=== PATIENT | male | born 1965 | race Caucasian/White ===

== ENCOUNTER 2016-06-24 13:49 | Emergency (ER) | payer SELFPAY ==
[~2016-06-24] VITALS: Ht 180.3 cm; Wt 108.4 kg
[~2016-06-24 13:49] MED LIST: ATRO0.05 LEFT EYE; GLUCTAB PO; PERC5TAB12 PO; POLY10O OU
[2016-06-24 13:57] VITALS: BP 147/96; PULSE 81; RESP 18; TEMP 98.3; O2SAT 98
[2016-06-24] MEDS ORDERED: HYDR-3366 PO (15:10)
--- NOTE | 2016-06-24 15:10 | PD ---
HPI Chief Complaint: Numbness/Tingling Time Seen by Provider: 14:53 Travel History International Travel<30 days: No Contact w/Intl Traveler<30days: No Traveled to known affect area: No History of Present Illness HPI Patient is a 51 year old male presents with atraumatic low back pain and numbness and tingling of the RUE. Patient states that he has a history of radiculopathy of the RUE. Patient denies trauma. States ran out of his pain medication. Patient denies saddle anesthesia, dyuria, enuresis. Denies fevers. PFSH Past Medical History Heart Rhythm Problems: No Cardiac Catheterization: No Cardiovascular Problems: No High Cholesterol: No Congestive Heart Failure: No Diabetes: Yes Diminished Hearing: No Hypertension: No Musculoskeletal: Yes (BACK PAIN) Immunizations Current: No Myocardial Infarction: No Past Surgical History Coronary Artery Bypass Graft: No Social History Alcohol Use: No Tobacco Use: Yes (4 CIG/DAY) Substance Use: No Allergies-Medications (Allergen,Severity, Reaction): Coded Allergies: Penicillin (Verified Allergy, Mild, ITCHING, 06/24/16) Reported Meds & Prescriptions Reported Meds & Active Scripts Active [place] (Hydrocodone-Acetaminophen) 10-325 Mg Tab 1 Tab PO Q6H PRN Reported Metformin (Metformin HCl) 500 Mg Tab 500 Mg PO DAILY With a meal Cymbalta DR (Duloxetine HCl) 20 Mg Capdr 20 Mg PO DAILY Review of Systems Except as stated in HPI: all other systems reviewed are Neg Physical Exam Narrative GENERAL: WD/WN in minimal discomfort. SKIN: Warm and dry. HEAD: Normocephalic. EYES: No scleral icterus. No injection or drainage. NECK: Supple, trachea midline. No JVD or lymphadenopathy. CARDIOVASCULAR: Regular rate and rhythm without murmurs, gallops, or rubs. RESPIRATORY: Breath sounds equal bilaterally. No accessory muscle use. GASTROINTESTINAL: Abdomen soft, non-tender, nondistended. NEURO: 5/5 strength in all muscle groups of the upper and lower extremities. MUSCULOSKELETAL: No cyanosis, or edema. No midline CTLS spine tenderness. No deformity nor bruising of extremities. Full active ROM of all joint in upper and lower ext. BACK: Nontender without obvious deformity. No CVA tenderness. Data Data Last Documented VS Vital Signs Date Time Temp Pulse Resp B/P Pulse Ox O2 Delivery O2 Flow Rate FiO2 06/24/16 13:57 98.3 81 18 147/96 98 Orders Oxycodone-Acetamin 5-325 Mg (Percocet (06/24/16 15:15) [facility] Medical Decision Making Medical Screen Exam Complete: Yes Emergency Medical Condition: Yes Differential Diagnosis Acute on chronic back pain, radiculopathy, Cauda equina ruled out clinically. Narrative Course Patient given pain medication in ED, he walked up to physician desk afterwards and stated that he felt much better and was grateful. 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 Discussed return to ED criteria. No indication for imaging as he has had OP imaging. Diagnosis Primary Impression: Acute exacerbation of chronic low back pain Additional Instructions: The emergency department should not be considered part of your treatment for chronic back pain. He should not expect to get pain medicine scripts from the emergency department. We are always happy to see and evaluate she for acute medical emergencies. The need to follow up with your regular physician. If you f fill the prescription for pain medicine today. Pain management physician may discharge you and you may have problems getting a new paintings restorer. Med/Other Pt SpecificInfo: Prescription(s) given Scripts Hydrocodone-Acetaminophen ([place])10-325 Mg Tab1 Tab PO Q6H PRN (PAIN) #10 TAB Ref 0 Prov:Regino Leone MD 06/24/16 Disposition: 01 DISCHARGE HOME Condition: Stable Regino Leone MD Jun 24, 2016 15:10
[2016-06-24] MEDS ORDERED: oxyCODONE/ACETAMINOPHEN 5 MG/325 MG TAB PO ONE (15:15)
[2016-06-24] MEDS ORDERED: METF500T PO (15:17)
[2016-06-24] MEDS ORDERED: DULO20 PO (15:17)
== END 2016-06-24 16:12 | disposition home or self-care (01) ==
LOC: PHED 13:49
DX: M54.5 Low back pain (principal); G89.29 Other chronic pain; R20.0 Anesthesia of skin; R20.2 Paresthesia of skin; E11.9 Type 2 diabetes mellitus without complications; Z72.0 Tobacco use
CPT/HCPCS: 99283

== ENCOUNTER 2016-09-23 10:58 | Emergency (ER) | payer SELFPAY ==
[~2016-09-23] VITALS: Ht 177.8 cm; Wt 110.2 kg
[~2016-09-23 10:58] MED LIST changes: -ATRO0.05 LEFT EYE; +DULO20 PO; -GLUCTAB PO; +HYDR-3366 PO; +METF500T PO; -PERC5TAB12 PO; -POLY10O OU
[2016-09-23 11:04] VITALS: BP 135/90; PULSE 83; RESP 16; TEMP 98.1; O2SAT 96
[2016-09-23] MEDS ORDERED: SULFAMETHOXAZOLE-TRIMETHOPRIM 400-80 MG TAB PO ONE (11:45)
[2016-09-23] MEDS ORDERED: CEPHALEXIN MONOHYDRATE 500 MG CAP PO ONE (11:45)
[2016-09-23] MEDS ORDERED: oxyCODONE/ACETAMINOPHEN 5 MG/325 MG TAB PO ONE (11:45)
[2016-09-23] MEDS ORDERED: CEPH-460 PO (11:46)
[2016-09-23] MEDS ORDERED: BACT800T5 PO (11:46)
--- NOTE | 2016-09-23 11:46 | PD ---
HPI Chief Complaint: Skin Problem Time Seen by Provider: 11:45 Travel History International Travel<30 days: No Contact w/Intl Traveler<30days: No Traveled to known affect area: No History of Present Illness HPI 51-year-old male with a history of chronic low back pain presents to the emergency department for evaluation of right arm redness and pain and lower back pain. The patient states that he has a few insect bites on his right upper arm that he noticed 2 days ago. States that they have been pruritic and he has scratched them. States that this morning he noticed he had a large area of redness and pain to his right upper arm. States it is warm to touch. States it is causing achiness in his entire right arm. He denies any fever, chills, nausea, vomiting, numbness or tingling, weakness. States that he is also having low back pain. He has a history of chronic low back pain and currently follows up with pain management. No new injury or trauma to his lower back. No saddle anesthesia, bowel or bladder incontinence. States that he is prescribed Lortab 85884 milligram tablets but he has run out of his prescription. He is requesting something for pain. No other complaints. PFSH Past Medical History Heart Rhythm Problems: No Cardiac Catheterization: No Cardiovascular Problems: No High Cholesterol: No Congestive Heart Failure: No Diabetes: Yes Patient Takes Glucophage: No Diminished Hearing: No Hypertension: No Musculoskeletal: Yes (Chronic back pain ) Neurologic: Yes (NEUROPATHY) Immunizations Current: No Myocardial Infarction: No Past Surgical History Coronary Artery Bypass Graft: No Social History Alcohol Use: No Tobacco Use: Yes (2 cigarettes/day) Substance Use: No Allergies-Medications (Allergen,Severity, Reaction): Coded Allergies: Penicillin (Verified Allergy, Mild, ITCHING, 06/24/16) Reported Meds & Prescriptions Reported Meds & Active Scripts Active Bactrim DS (Sulfamethoxazole-Trimethoprim) 800-160 Mg Tab 1 Tab PO BID 10 Days Keflex (Cephalexin) 500 Mg Cap 500 Mg PO Q6H [address] (Duloxetine HCl) 20 Mg Capdr 20 Mg PO DAILY Review of Systems Except as stated in HPI: all other systems reviewed are Neg Physical Exam Narrative GENERAL: Well-nourished and well-developed pleasant patient in no acute distress who is nontoxic appearing. SKIN: Warm and dry. 5 scattered papules to right upper arm,. Insect bites. There is a large area of erythema and warmth approximately 11 x 11 cm on the right upper arm. No fluctuance, discharge or drainage. HEAD: Normocephalic and atraumatic. EYES: No injection, drainage, or hyphema noted. PERRLA. EOMI. ENT: No nasal drainage noted. Oropharynx is clear. NECK: Supple and the trachea is midline. CARDIOVASCULAR: Regular rate and rhythm. RESPIRATORY: Breath sounds are equal bilaterally with no accessory muscle use, wheezing, rhonchi, or crackles. GASTROINTESTINAL: Abdomen is soft, non-tender, and nondistended. MUSCULOSKELETAL: No obvious deformities, swelling, cyanosis, or ecchymosis is present throughout the upper and lower extremities. Patient has full range of motion without any signs of neurovascular compromise. BACK: Nontender without any obvious deformities, bony point tenderness, or crepitus noted throughout the thoracic and lumbar vertebrae. NEUROLOGICAL: Awake, alert, and oriented. Normal speech and gait. Cranial nerves are grossly intact. Data Data Last Documented VS Vital Signs Date Time Temp Pulse Resp B/P Pulse Ox O2 Delivery O2 Flow Rate FiO2 09/23/16 11:04 98.1 83 16 135/90 96 Orders Sulfameth-Trimeth 400-80 Mg (Bactrim 400 (09/23/16 11:45) Cephalexin (Keflex) (09/23/16 11:45) Oxycodone-Acetamin 5-325 Mg (Percocet (09/23/16 11:45) MDM Medical Decision Making Medical Screen Exam Complete: Yes Emergency Medical Condition: Yes Differential Diagnosis Cellulitis versus insect bites versus allergic reaction versus acute on chronic low back pain Narrative Course 51-year-old male presents to the emergency department for evaluation of right arm redness and lower back pain. Patient is afebrile, vital signs are stable. He does appear to have a cellulitis to his right upper extremity. He'll be started on Bactrim and Keflex. He is also complaining of lower back pain but has a history of chronic low back pain, no new injury or trauma, no focal neurologic deficits. No red flag signs or symptoms. I did look the patient up on [place] prescription drug monitoring program which shows he filled a 30 day prescription of Lortab 58801 milligrams 09/01/16. Meaning that he should have 9 days left of this prescription. I did address this with the patient and he admits he has been taking more tablets than he is prescribed which is why he is out of his prescription. I will give the patient a one-time dose of Percocet here in the ED. I discussed with him that we do not routinely refill chronic pain medication from the emergency department. He needs to follow-up with his pain management physician as an outpatient. Patient verbalizes understanding and agreement with treatment plan. Diagnosis Primary Impression: Right arm cellulitis Additional Impression: Chronic low back pain Qualified Code: M54.5 - Chronic low back pain, unspecified back pain laterality, with sciatica presence unspecified Referrals: Pain Management Primary Care Physician Patient Instructions: Cellulitis (ED), Chronic Back Pain (ED), General Instructions Additional Instructions: Take medications as prescribed with food and a full glass of water. Follow-up with your Primary Care Physician. Return to the ED for any acute worsening of symptoms. Med/Other Pt SpecificInfo: Prescription(s) given Scripts Sulfamethoxazole-Trimethoprim (Bactrim DS)800-160 Mg Tab1 Tab PO BID 10 Days Ref 0 Prov:Manuel Gavin MD 09/23/16 Cephalexin (Keflex)500 Mg [id number] Mg PO Q6H 10 Days Ref 0 Prov:Manuel Gavin MD 09/23/16 Disposition: 01 DISCHARGE HOME Condition: Stable Sheila Hawley Sep 23, 2016 11:46
== END 2016-09-23 12:40 | disposition home or self-care (01) ==
LOC: PHEFT 10:58
DX: L03.113 Cellulitis of right upper limb (principal); M54.5 Low back pain; G89.29 Other chronic pain; E11.9 Type 2 diabetes mellitus without complications; G62.9 Polyneuropathy, unspecified; F17.210 Nicotine dependence, cigarettes, uncomplicated
CPT/HCPCS: 99283

== ENCOUNTER 2016-10-11 07:58 | Observation (INO) | payer SELFPAY ==
[2016-10-11] VITALS (10 sets, daily range): BP systolic 120–155; BP diastolic 65–95; PULSE 62–84; RESP 16–24; TEMP 97.8–98.6; O2SAT 93–96
[~2016-10-11] VITALS: Ht 180.3 cm; Wt 110.0 kg
[~2016-10-11 07:58] MED LIST changes: +BACT800T5 PO; +CEPH-460 PO; -HYDR-3366 PO; -METF500T PO
--- NOTE | 2016-10-11 08:29 | PD ---
HPI Chief Complaint: Chest Pain Time Seen by Provider: 08:03 Travel History International Travel<30 days: No Contact w/Intl Traveler<30days: No Traveled to known affect area: No History of Present Illness HPI 51yo M with PMH of DM not on any medication, neuropathy, TIA presents to the ED with c/o left chest pressure since 4am. Pressure is constant, nonradiating and associated with nausea and tingling in left arm. Denies any fever, cough, sob, vomiting, abdominal pain, focal weakness or numbness other than left arm. Pt had similar chest pain before and had negative stress test 5-6 years ago. +Cig smoker. PFSH Past Medical History Heart Rhythm Problems: No Cardiac Catheterization: No Cardiovascular Problems: No High Cholesterol: No Congestive Heart Failure: No Cerebrovascular Accident: Yes Diabetes: Yes Patient Takes Glucophage: Yes Diminished Hearing: No Hypertension: No Musculoskeletal: Yes (Chronic back pain ) Neurologic: Yes (NEUROPATHY) Immunizations Current: No Myocardial Infarction: No Influenza Vaccination: No Past Surgical History Surgical History: No Previous Surgery Coronary Artery Bypass Graft: No Social History Alcohol Use: No Tobacco Use: Yes (1/2 PPD) Substance Use: No Allergies-Medications (Allergen,Severity, Reaction): Coded Allergies: Penicillin (Verified Allergy, Mild, ITCHING, 10/11/16) Reported Meds & Prescriptions Reported Meds & Active Scripts Active Reported Lortab (Hydrocodone-Acetaminophen) 10-325 Mg Tab 1 Tab PO Q8HR PRN Duloxetine DR (Duloxetine HCl) 60 Mg Capdr 60 Mg PO DAILY Review of Systems Except as stated in HPI: all other systems reviewed are Neg Physical Exam Narrative GEN: 51yo M in mild distress. SKIN: Warm and dry. HEAD: Normocephalic, atraumatic. NECK: Trachea midline. No JVD. CV: S1, S2. No murmur. Lungs: CTA B/L, equal breath sounds. Abd: soft, NT/ND. No rebound tenderness or guarding. EXT: No lower ext edema. Data Data Last Documented VS Vital Signs Date Time Temp Pulse Resp B/P Pulse Ox O2 Delivery O2 Flow Rate FiO2 10/11/16 08:52 84 24 127/78 95 Room Air 10/11/16 08:06 98.3 Orders Electrocardiogram (10/11/16 ) Basic Metabolic Panel (Bmp) (10/11/16 08:25) Ckmb (Isoenzyme) Profile (10/11/16 08:25) Complete Blood Count With Diff (10/11/16 08:25) Magnesium (Mg) (10/11/16 08:25) Prothrombin Time / Inr (Pt) (10/11/16 08:25) Act Partial Throm Time (Ptt) (10/11/16 08:25) Troponin I (10/11/16 08:25) Chest, Single Ap (10/11/16 08:25) Ecg Monitoring (10/11/16 08:25) Bilateral Bp Monitoring (10/11/16 08:25) Iv Access Insert/Monitor (10/11/16 08:25) Oximetry (10/11/16 08:25) Oxygen Administration (10/11/16 08:25) Aspirin (Aspirin) (10/11/16 08:30) Sodium Chloride 0.9% Flush (Ns Flush) (10/11/16 08:30) Nitroglycerin Sl (Nitrostat Sl) (10/11/16 08:30) CKMB (10/11/16 08:48) CKMB% (10/11/16 08:48) Admit Order (Ed Use Only) (10/11/16 10:00) Labs Laboratory Tests Test 10/11/16 08:48 White Blood Count 11.6 TH/MM3 Red Blood Count 5.03 MIL/MM3 Hemoglobin 14.4 GM/DL Hematocrit 43.6 % Mean Corpuscular Volume 86.7 FL Mean Corpuscular Hemoglobin 28.6 PG Mean Corpuscular Hemoglobin 33.0 % Concent Red Cell Distribution Width 13.3 % Platelet Count 248 TH/MM3 Mean Platelet Volume 8.5 FL Neutrophils (%) (Auto) 60.2 % Lymphocytes (%) (Auto) 24.7 % Monocytes (%) (Auto) 11.2 % Eosinophils (%) (Auto) 3.0 % Basophils (%) (Auto) 0.9 % Neutrophils # (Auto) 7.0 TH/MM3 Lymphocytes # (Auto) 2.9 TH/MM3 Monocytes # (Auto) 1.3 TH/MM3 Eosinophils # (Auto) 0.3 TH/MM3 Basophils # (Auto) 0.1 TH/MM3 CBC Comment DIFF FINAL Differential Comment Prothrombin Time 10.4 SEC Prothromb Time International 0.9 RATIO Ratio Activated Partial 24.5 SEC Thromboplast Time Sodium Level 137 MEQ/L Potassium Level 4.5 MEQ/L Chloride Level 103 MEQ/L Carbon Dioxide Level 28.2 MEQ/L Anion Gap 6 MEQ/L Blood Urea Nitrogen 11 MG/DL Creatinine 0.92 MG/DL Estimat Glomerular Filtration 86 ML/MIN Rate Random Glucose 212 MG/DL Calcium Level 8.7 MG/DL Magnesium Level 1.9 MG/DL Total Creatine Kinase 146 U/L Creatine Kinase MB 1.0 NG/ML Troponin I LESS THAN 0.02 NG/ML MDM Medical Decision Making Medical Screen Exam Complete: Yes Emergency Medical Condition: Yes Interpretation(s) EKG: NSR 76bpm. Normal axis. No ST segment elevation or depression. Q wave III. Laboratory Tests Test 10/11/16 08:48 White Blood Count 11.6 TH/MM3 (4.0-11.0) Red Blood Count 5.03 MIL/MM3 (4.50-5.90) Hemoglobin 14.4 GM/DL (13.0-17.0) Hematocrit 43.6 % (39.0-51.0) Mean Corpuscular Volume 86.7 FL (80.0-100.0) Mean Corpuscular Hemoglobin 28.6 PG (27.0-34.0) Mean Corpuscular Hemoglobin 33.0 % Concent (32.0-36.0) Red Cell Distribution Width 13.3 % (11.6-17.2) Platelet Count 248 TH/MM3 (150-450) Mean Platelet Volume 8.5 FL (7.0-11.0) Neutrophils (%) (Auto) 60.2 % (16.0-70.0) Lymphocytes (%) (Auto) 24.7 % (9.0-44.0) Monocytes (%) (Auto) 11.2 % (0.0-8.0) Eosinophils (%) (Auto) 3.0 % (0.0-4.0) Basophils (%) (Auto) 0.9 % (0.0-2.0) Neutrophils # (Auto) 7.0 TH/MM3 (1.8-7.7) Lymphocytes # (Auto) 2.9 TH/MM3 (1.0-4.8) Monocytes # (Auto) 1.3 TH/MM3 (0-0.9) Eosinophils # (Auto) 0.3 TH/MM3 (0-0.4) Basophils # (Auto) 0.1 TH/MM3 (0-0.2) CBC Comment DIFF FINAL Differential Comment Prothrombin Time 10.4 SEC (9.8-11.6) Prothromb Time International 0.9 RATIO Ratio Activated Partial 24.5 SEC Thromboplast Time (24.3-30.1) Sodium Level 137 MEQ/L (136-145) Potassium Level 4.5 MEQ/L (3.5-5.1) Chloride Level 103 MEQ/L (98-107) Carbon Dioxide Level 28.2 MEQ/L (21.0-32.0) Anion Gap 6 MEQ/L (5-15) Blood Urea Nitrogen 11 MG/DL (7-18) Creatinine 0.92 MG/DL (0.60-1.30) Estimat Glomerular Filtration 86 ML/MIN (>89) Rate Random Glucose 212 MG/DL (74-106) Calcium Level 8.7 MG/DL (8.5-10.1) Magnesium Level 1.9 MG/DL (1.5-2.5) Total Creatine Kinase 146 U/L (39-308) Creatine Kinase MB 1.0 NG/ML (0.5-3.6) Troponin I LESS THAN 0.02 NG/ML (0.02-0.05) Last Impressions Chest X-Ray 10/11/16 0825 Signed Impressions: Service Date/Time: Tuesday, October 11, 2016 08:22 - CONCLUSION: Minimal left basilar atelectasis. Bob Arrington MD Differential Diagnosis ACS vs. musculoskeletal pain vs. GERD Narrative Course 51yo M with DM here with pressure like pain in chest. Pt given aspirin 325mg PO and sublingual nitro and states that chest pain was relieved a few minutes after the nitro. Labs reviewed, mild leukocytosis at 11.6. Troponin negative. Glucose elevated at 212 with normal CO2 and normal anion gap. Pt states he has DM but does not need any medication. Instructed pt to follow up with his PMD regarding his DM. CXR showed minimal left basilar atelectasis. Pt currently chest pain free. Given that pt's chest pain is concerning and pt has not had any cardiac work up in 5-6 years, will admit pt to chest pain center for serial EKG and cardiac enzyme and likely stress test. Diagnosis Primary Impression: Chest pain Qualified Code: R07.9 - Chest pain, unspecified type Admitting Information Admitting Physician Requests: Carrol Pruitt DO October 11, 2016 08:29
[2016-10-11] MEDS ORDERED: ASPIRIN 325 MG TAB PO ONE (08:30)
[2016-10-11] MEDS ORDERED: SODIUM CHLORIDE 0.9% FLUSH 10 ML FLUSH IVF PRN (08:30)
[2016-10-11] MEDS: NITROGLYCERIN 0.4 MG SL 25 TABS/BTL SL SCH ×3 (08:35→08:51)
--- NOTE | 2016-10-11 08:38 | RADRPT ---
EXAM DATE/TIME: 10/11/2016 08:22 [facility] COMPARISON: CHEST SINGLE AP, August 17, 2014, 18:04. INDICATIONS : Pressure in chest since 4am this morning, no shortness of breath, smoker MEDICAL HISTORY : None. SURGICAL HISTORY : None. ENCOUNTER: Initial ACUITY: 1 day PAIN SCORE: 8/10 LOCATION: Bilateral chest FINDINGS: A single view of the chest demonstrates minimal left basilar atelectasis. Right lung clear. Heart nor mal in size. Osseous structures are intact. CONCLUSION: Minimal left basilar atelectasis. Bob Arrington MD on October 11, 2016 at 8:36 Board Certified Radiologist. This report was verified electronically.
[2016-10-11 09:00] LABS: BASOPHIL # 0.1 TH/MM3 (0-0.2); BASOPHIL % 0.9 % (0.0-2.0); EOSINOPHIL # 0.3 TH/MM3 (0-0.4); HEMATOCRIT 43.6 % (39.0-51.0); HEMO FLAGS DIFF FINAL; LYMPH % 24.7 % (9.0-44.0); LYMPHOCYTE # 2.9 TH/MM3 (1.0-4.8); MEAN CELL VOLUME 86.7 FL (80.0-100.0); MEAN CORPUSCULAR HEMOGLOBIN 28.6 PG (27.0-34.0); MONO % 11.2 % (0.0-8.0); NEUT % 60.2 % (16.0-70.0); PLATELET COUNT 248 TH/MM3 (150-450); RED BLOOD COUNT 5.03 MIL/MM3 (4.50-5.90); RED CELL DISTRIBUTION WIDTH 13.3 % (11.6-17.2); WHITE BLOOD COUNT 11.6 TH/MM3 (4.0-11.0)
[2016-10-11 09:12] LABS: ANION GAP 6 MEQ/L (5-15); APTT (PATIENT) 24.5 SEC (24.3-30.1); BICARBONATE 28.2 MEQ/L (21.0-32.0); BLOOD UREA NITROGEN 11 MG/DL (7-18); CHLORIDE 103 MEQ/L (98-107); GLOMERULAR FILTRATION RATE 86 ML/MIN (>89); INTERNATIONAL NORMALIZED RATIO 0.9 RATIO; MAGNESIUM 1.9 MG/DL (1.5-2.5); PROTHROMBIN TIME - PATIENT 10.4 SEC (9.8-11.6); SODIUM (NA) 137 MEQ/L (136-145)
[2016-10-11 09:13] LABS: POTASSIUM 4.5 MEQ/L (3.5-5.1)
[2016-10-11 09:21] LABS: CREATINE KINASE 146 U/L (39-308)
[2016-10-11] MEDS ORDERED: SODIUM CHLORIDE 0.9% FLUSH 5 ML FLUSH IVF PRN (10:30)
[2016-10-11] MEDS ORDERED: ALPRAZolam 0.25 MG TAB PO PRN (10:30)
[2016-10-11] MEDS ORDERED: ACETAMINOPHEN/HYDROcodone 325 MG/7.5 MG TAB PO PRN (10:30)
[2016-10-11] MEDS ORDERED: HYDR-3535 PO (10:37)
[2016-10-11] MEDS ORDERED: DULO1CAP3 PO (10:37)
--- NOTE | 2016-10-11 10:37 | HHI.HP ---
HPI Primary Care Physician Non-Staff Chief Complaint Chest pain History of Present Illness This is a 51-year-old male that presents to ED via private vehicle with history of diabetes, chronic back pain, neuropathy, TIA, and tobacco abuse with a complaint of a chest pressure. He states he had a chest pressure began around midnight last night. 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 It was a 7-8 out of 10. He also noted some numbness and tingling in his left hand. Found the discomfort was worsened if he let his left arm brushed against the left side of his chest wall. He states he has had chronic left-sided chest soreness for about 2 years and has talked his doctor about this several times. Little nauseous initially with the higher level intensity pain. No shortness breath or diaphoresis. He states he took a morphine tablet that he had and it brought the discomfort to about a 4 out of 10. He states he is given subluminal nitroglycerin in the ED which brought the discomfort to about a 2 out of 10. It is still there as a 2 out of 10. Denies ever having a heart catheterization. He had a Sher protocol ETT in 2007 is nonischemic. States he would not be a walk on a treadmill again with his chronic back discomfort and neuropathy in his feet. Review of Systems General: Patient denies fevers, chills recent, and recent travel HEENT: Patient denies headache, sore throat, difficulty swallowing. Cardiovascular: Has the chest discomfort as mentioned above. Denies sensation of heart beating rapidly or irregularly. No syncope. Denies diaphoresis. Respiratory: Denies shortness of breath or inspirational chest discomfort. Denies coughing wheezing or hemoptysis. GI: He was nauseous at the higher level pain. Patient denies vomiting, diarrhea , abdominal pain, bloody stools. Musculoskeletal: Chronic back pain. Patient denies joint pain or edema. Denies calf pain or edema. Neurovascular: Chronic neuropathy in his feet. Patient denies numbness, tingling, weakness in extremities. Denies headache. Endocrine: Denies polyuria and polydipsia. Hematologic: Denies easy bruising. Skin: Denies rash or itching. Past Family Social History Allergies: Coded Allergies: Penicillin (Verified Allergy, Mild, ITCHING, 10/11/16) Past Medical History Diabetes however he states he stopped taking metformin a couple months ago and was controlling with diet. His glucose was to 12 in the ED and he states that that is unusual for him. History of chronic back pain with neuropathy. States had a TIA 5 or 6 years ago. History of tobacco abuse. Denies hypertension and hyperlipidemia. When asked if he was ever on statin medications as he is diagnosed with diabetes and he states no. Past Surgical History Denies. Reported Medications Reported Meds & Active Scripts Active Reported Cymbalta DR (Duloxetine HCl) 20 Mg Capdr 20 Mg PO DAILY Active Ordered Medications Current Medications Medications (Trade) Dose Ordered Sig/Gayle Route Start Time Stop Time Status Last Admin (NS Flush) 2 ml UNSCH PRN IVF 10/11/16 08:30 (NS Flush) 2 ml UNSCH PRN IVF 10/11/16 10:30 UNV (NS Flush) 2 ml BID IVF 10/11/16 21:00 UNV (Tylenol) 500 mg Q4H PRN PO 10/11/16 10:30 UNV ([place] 7.5-325 Mg) 1 tab Q4H PRN PO 10/11/16 10:30 UNV (Zofran Inj) 4 mg Q6H PRN IV 10/11/16 10:30 UNV Family History States his father passed at the age of 66 of a myocardial infarction. Social History Patient smokes one pack of cigarettes daily for 30 years. Denies alcohol or illicit drugs. 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 Physical Exam Vital Signs Vital Signs Date Time Temp Pulse Resp B/P Pulse Ox O2 Delivery O2 Flow Rate FiO2 10/11/16 10:05 69 16 120/75 95 Room Air 10/11/16 08:52 84 24 127/78 95 Room Air 10/11/16 08:08 78 16 155/95 95 Room Air 10/11/16 08:06 98.3 76 16 155/95 Physical Exam GENERAL: This is a well-nourished, well-developed patient, in no apparent distress. Patient speaks in clear complete sentences. Patient is pleasant. HEENT: Head is atraumatic and normocephalic. Neck is supple without lymphadenopathy and trachea is midline. No JVD or carotid bruits. CARDIOVASCULAR: Regular rate and rhythm without murmurs, gallops, or rubs. RESPIRATORY: Clear to auscultation. Breath sounds equal bilaterally. No wheezes , rales, or rhonchi. Chest wall is tender and reproduces discomfort he has been having. Also is worsened with movement of the torso. No use of accessory muscles. GASTROINTESTINAL: Abdomen is nontender, nondistended. Abdomen soft. No obvious pulsatile mass or bruit. No CVA tenderness. Strong femoral pulses bilaterally. Normal bowel sounds in all quadrants. MUSCULOSKELETAL: Patient is moving upper and lower extremities freely. No calf tenderness or edema, no Homans sign. Strong pulses in upper and lower extremities. Low back pain is present with flexion and extension and is chronic. No spinous process point tenderness on palpating cervical, thoracic, or lumbar spine. NEUROLOGICAL: Patient is alert and oriented. Cranial nerves 2-12 are grossly intact. No focal deficits and speech is clear. SKIN: No rash and turgor is normal. Laboratory Laboratory Tests Test 10/11/16 08:48 White Blood Count 11.6 Red Blood Count 5.03 Hemoglobin 14.4 Hematocrit 43.6 Mean Corpuscular Volume 86.7 Mean Corpuscular Hemoglobin 28.6 Mean Corpuscular Hemoglobin 33.0 Concent Red Cell Distribution Width 13.3 Platelet Count 248 Mean Platelet Volume 8.5 Neutrophils (%) (Auto) 60.2 Lymphocytes (%) (Auto) 24.7 Monocytes (%) (Auto) 11.2 Eosinophils (%) (Auto) 3.0 Basophils (%) (Auto) 0.9 Neutrophils # (Auto) 7.0 Lymphocytes # (Auto) 2.9 Monocytes # (Auto) 1.3 Eosinophils # (Auto) 0.3 Basophils # (Auto) 0.1 CBC Comment DIFF FINAL Differential Comment Prothrombin Time 10.4 Prothromb Time International 0.9 Ratio Activated Partial 24.5 Thromboplast Time Sodium Level 137 Potassium Level 4.5 Chloride Level 103 Carbon Dioxide Level 28.2 Anion Gap 6 Blood Urea Nitrogen 11 Creatinine 0.92 Estimat Glomerular Filtration 86 Rate Random Glucose 212 Calcium Level 8.7 Magnesium Level 1.9 Total Creatine Kinase 146 Creatine Kinase MB 1.0 Troponin I LESS THAN 0.02 Result Diagram: 10/11/1648 10/11/16847 Imaging Last 24 hours Impressions Chest X-Ray 10/11/16 0868 Signed Impressions: Service Date/Time: Tuesday, October 11, 2016 08:22 - CONCLUSION: Minimal left basilar atelectasis. Bob Arrington MD Course Initial EKG is sinus rhythm without significant ST segment depressions or elevations. Assessment and Plan Assessment and Plan * Chest pain: Patient's discomfort is atypical. He will have serial cardiac enzymes and EKGs for ruling out purposes and will be evaluated by Dr. Chevy Garcia to decide further plan of care. He'll be given Toradol 1 for the discomfort and will be reassessed. * Diabetes: Patient will be on sliding scale insulin coverage. He is follow diabetic diet at discharge. Needs discuss with his primary care physician medications for his diabetes as well as if he can be on a statin medication being that he is diabetic. * Chronic back pain: Continue his medications. * Tobacco abuse: Patient has been counseled on importance of smoking cessation. Primitivo Valencia October 11, 2016 10:37
--- NOTE | 2016-10-11 10:38 | HHI.DCPOC ---
Discharge Care Plan Goals to Promote Your Health NEED TO DISCUSS TAKING CHOLESTEROL MEDICATIONS FOR PREVENTATIVE CARE SINCE YOU ARE DIABETIC. * To prevent worsening of your condition and complications * To maintain your health at the optimal level Directions to Meet Your Goals Take your medications as prescribed Follow your dietary instruction Follow activity as directed Keep your appointments as scheduled Take your immunizations and boosters as scheduled If your symptoms worsen call your PCP, if no PCP go to Urgent Care Center or Emergency Room Smoking is Dangerous to Your Health. Avoid second hand smoke Call the 24-hour hour crisis hotline for domestic abuse at Primitivo Valencia October 11, 2016 10:38
[2016-10-11] MEDS ORDERED: DEXTROSE 50% IN WATER 50 ML VIAL(D50) IV PRN (10:45)
[2016-10-11] MEDS ORDERED: KETOROLAC TROMETHAMINE 30 MG/ML (IVP) VIAL IVP ONE (10:45)
[2016-10-11] MEDS ORDERED: GLUCAGON 1 MG/ML VIAL IM/SQ PRN (10:45)
[2016-10-11] MEDS: INSULIN ASPART SUPPLEMENTAL SCALE SQ SCH ×3 (11:00→21:11)
[2016-10-11] MEDS: PANTOPRAZOLE SOD 40 MG DELAYED RELEASE TAB PO SCH (11:09)
--- NOTE | 2016-10-11 14:51 | RADRPT ---
EXAM DATE/TIME: 10/11/2016 12:18 [facility] COMPARISON: No previous studies available for comparison. INDICATIONS : Mid chest pain for one day. Angina DOSE: 35.0 mCi Tc99m Myoview at stress 8.7 mCi Tc99m Myoview at rest REST HEART RATE: 78 BPM TARGET HEART RATE: 142 BPM MAX HEART RATE: 144 BPM REST BLOOD PRESSURE: 134/86 mmHg MAX BLOOD PRESSURE: 170/84 mmHg EJECTION FRACTION: 50% MEDICAL HISTORY : Hypertension. Stroke Diabetes mellitus type 2. SURGICAL HISTORY : None. ENCOUNTER: Initial ACUITY: 1 day PAIN SCALE: 8/10 LOCATION: Midsternal chest TECHNIQUE: The patient underwent upright treadmill exercise in the chest pain center. Continuous ECG tracing wa s monitored during stress. Gated SPECT imaging was performed after stress, and conventional SPECT im aging was performed at rest. The examination was performed on a SPECT/CT scanner, both attenuation-c orrected and non-corrected datasets were reviewed. FINDINGS: The best perfused myocardium is the septum and the inferior wall. There is minimal redistribution in the anterior wall beginning at mid ventricular wall extending towards the apex. Wall motion is reas onably well preserved in the apex. Ejection fraction is 50%. CONCLUSION: Findings suspicious for minimal stress-induced ischemia beginning in the mid ventricular wall extendi ng towards the apex. RISK CATEGORY: Low (<1% Annual Mortality Rate) Fadi Rodriguez MD FACR on October 11, 2016 at 14:47 Board Certified Radiologist. This report was verified electronically.
[2016-10-11] MEDS ORDERED: cloNIDine HCL 0.1 MG TAB PO PRN (15:30)
[2016-10-11] MEDS ORDERED: SODIUM CHLOR 0.9% 1000 ML INJ 1,000 ML IV SCH (15:30)
[2016-10-11] MEDS: ACETAMINOPHEN/HYDROcodone 325 MG/10 MG TAB PO PRN (15:59)
[2016-10-11] MEDS: METOPROLOL TARTRATE 25 MG TAB PO SCH ×2 (17:02→21:05)
[2016-10-11] MEDS: NITROGLYCERIN 2% OINT 1 GM PACKET TOPICAL SCH ×2 (17:03→23:00)
--- NOTE | 2016-10-11 17:09 | HHI.PR ---
Subjective Remarks Follow-up for chest pain Patient stated that he does feel a mild tingling sensation on the left side of his chest. Nausea or vomiting. He stated that he thought the nitroglycerin sublingual helped him. Otherwise he had no other concerns. Patient is asking to eat. Care is transferred to the hospitalist service from chest pain center due to abnormal nuclear stress test. Objective Vitals Vital Signs Date Time Temp Pulse Resp B/P Pulse Ox O2 Delivery O2 Flow Rate FiO2 10/11/16 16:10 98.4 69 20 141/93 96 10/11/16 14:22 21 10/11/16 12:27 97.8 67 20 141/92 96 10/11/16 10:05 69 16 120/75 95 Room Air 10/11/16 08:52 84 24 127/78 95 Room Air 10/11/16 08:08 78 16 155/95 95 Room Air 10/11/16 08:06 98.3 76 16 155/95 Result Diagram: 10/11/1648 10/11/1648 Objective Remarks GENERAL: in NAD SKIN: Warm and dry. HEAD: Normocephalic. EYES: No scleral icterus. No injection or drainage. NECK: Supple, trachea midline. No JVD or lymphadenopathy. CARDIOVASCULAR: Regular rate and rhythm without murmurs, gallops, or rubs. RESPIRATORY: Breath sounds equal bilaterally. No accessory muscle use. GASTROINTESTINAL: Abdomen soft, non-tender, nondistended. MUSCULOSKELETAL: No cyanosis, or edema. BACK: Nontender without obvious deformity. No CVA tenderness. Medications and IVs Current Medications Aspirin (Aspirin) 325 mg ONCE ONCE PO Last administered on 10/11/16 08:51; Start 10/11/16 at 08:30; Stop 10/11/16 at 08:31; Status DC Sodium Chloride (NS Flush) 2 ml UNSCH PRN IVF FLUSH AFTER USING IV ACCESS; Start 10/11/16 at 08:30; Stop 10/11/16 at 10:30; Status DC Nitroglycerin (Nitrostat Sl) 0.4 mg Q5M SL Last administered on 10/11/16 08:51 ; Start 10/11/16 at 08:30; Stop 10/11/16 at 08:41; Status DC IV Flush (NS Flush) 2 ml UNSCH PRN IVF FLUSH AFTER USING IV ACCESS; Start at 10:30 IV Flush (NS Flush) 2 ml BID IVF ; Start 10/11/16 at 21:00 Acetaminophen (Tylenol) 500 mg Q4H PRN PO HEADACHE; Start 10/11/16 at 10:30 Acetaminophen/ Hydrocodone Bitart ([place] 7.5-325 Mg) 1 tab Q4H PRN PO PAIN SCALE 1 TO 7; Start 10/11/16 at 10:30; Stop 10/11/16 at 15:41; Status DC Ondansetron HCl (Zofran Inj) 4 mg Q6H PRN IV NAUSEA; Start 10/11/16 at 10:30 Pantoprazole Sodium (Protonix) 40 mg DAILY PO Last administered on 10/11/16 11: 09; Start 10/11/16 at 11:00 Aspirin (Aspirin) 325 mg DAILY PO ; Start 10/12/16 at 09:00 Alprazolam (Xanax) 0.25 mg Q8H PRN PO ANXIETY; Start 10/11/16 at 10:30 Insulin Aspart (NovoLOG SUPPLEMENTAL SCALE) 1 ACHS SLIDING SCALE SQ ; Start 10/11/16 at 11:00 Dextrose (D50w (Vial) Inj) 25 ml UNSCH PRN IV HYPOGLYCEMIA-SEE COMMENTS; Start 10/11/16 at 10:45 Glucagon (Glucagon Inj) 1 mg UNSCH PRN IM/SQ HYPOGLYCEMIA-SEE COMMENTS; Start 10/11/16 at 10:45 Ketorolac Tromethamine (Toradol Inj) 30 mg ONCE ONCE IVP Last administered on 10/11/16 11:09; Start 10/11/16 at 10:45; Stop 10/11/16 at 10:46; Status DC Metoprolol Tartrate (Lopressor) 25 mg Q12HR PO ; Start 10/11/16 at 21:00; Stop at 21:00; Status DC Nitroglycerin (Nitroglycerin 2% Oint) 0.5 inch Q6HR TOPICAL ; Start 10/11/16 at 18:00; Stop 10/11/16 at 18:00; Status DC Clonidine 0.1 mg 0.1 mg Q4H PRN PO SYS BP GREATER THAN 160 MMHG; Start 10/11/16 at 15:30 Sodium Chloride (NS 1000 ml Inj) 1,000 ml @ 125 mls/hr Q8H IV Last administered on 10/11/16 15:56; Start 10/11/16 at 15:30; Stop 10/11/16 at 23:29 Duloxetine HCl (Cymbalta Dr) 60 mg DAILY PO ; Start 10/12/16 at 09:00 Acetaminophen/ Hydrocodone Bitart ([place] 10-325 Mg) 1 tab Q8HR PRN PO PAIN SCALE 4 TO 10 Last administered on 10/11/16 15:59; Start 10/11/16 at 15:45 Metoprolol Tartrate (Lopressor) 25 mg Q12HR PO Last administered on 10/11/16 17 :02; Start 10/11/16 at 17:00 Nitroglycerin (Nitroglycerin 2% Oint) 0.5 inch Q6H TOPICAL Last administered on 10/11/16 17:03; Start 10/11/16 at 17:00 A/P Assessment and Plan Chest pain -Atypical but patient does have a positive nuclear stress test. EKG not impressive. Troponin negative so far pending trend.. -Will start patient on Nitropaste and metoprolol. -Billing Machine Operator already consulted. Continue to monitor over chronic telemetry and clinically. -We'll get a lipid panel. Type 2 diabetes -Patient is not on any medication. -We'll get a hemoglobin A1c. He needs to follow-up with his PCP in regards to medication. Chronic back pain: - Continue his medications. Tobacco abuse - Patient has been counseled on importance of smoking cessation. Miranda Chang MD October 11, 2016 17:08
[2016-10-11 17:29] LABS: CREATINE KINASE 78 U/L (39-308)
[2016-10-11] MEDS ORDERED: NITROGLYCERIN 2% OINT 1 GM PACKET TOPICAL SCH (18:00)
[2016-10-11 19:03] LABS: HEMOGLOBIN A1a 1.1 %; HEMOGLOBIN A1b 2.1 %; HEMOGLOBIN Ao 81.9 %; HEMOGLOBIN LA1C 2.7 %; HEMOGLOBIN P3 4.1 %
[2016-10-11] MEDS: ACETAMINOPHEN 500 MG CPLT PO PRN (20:04)
[2016-10-11] MEDS: SODIUM CHLORIDE 0.9% FLUSH 5 ML FLUSH IVF SCH (21:00)
[2016-10-11] MEDS ORDERED: METOPROLOL TARTRATE 25 MG TAB PO SCH (21:00)
[2016-10-11] MEDS: ONDANSETRON HCL 4 MG/2 ML VIAL IV PRN (21:12)
[2016-10-12 03:55] VITALS: BP 133/77; PULSE 73; RESP 18; TEMP 98.3; O2SAT 93
[2016-10-12] MEDS: ACETAMINOPHEN/HYDROcodone 325 MG/10 MG TAB PO PRN ×2 (04:02→11:49)
[2016-10-12] MEDS: NITROGLYCERIN 2% OINT 1 GM PACKET TOPICAL SCH (04:56)
[2016-10-12] MEDS: INSULIN ASPART SUPPLEMENTAL SCALE SQ SCH (06:13)
[2016-10-12] MEDS: ACETAMINOPHEN 500 MG CPLT PO PRN (06:16)
[2016-10-12 07:25] VITALS: BP 140/92; PULSE 65; RESP 20; TEMP 98.1; O2SAT 96
--- NOTE | 2016-10-12 07:36 | MB ---
cc: JAYNE ISABEL INTERVENTIONAL CARDIAC CONSULTATION DATE OF 1965 DATE OF CONSULTATION October 11, 2016 REASON FOR CONSULTATION Chest pain. Positive nuclear stress test. HISTORY OF PRESENT ILLNESS 51-year-old male with past medical history significant for diabetes, TIA, tobacco abuse, obesity, who presented to the emergency department with complaints of left-sided chest pressure that radiates to the left shoulder associated with numbness to the fingers of the left hand. The patient reports chest discomfort for the last couple of weeks; however, they have worsened in the last two days. She he was admitted to the cardiac chest pain unit. Cardiac enzymes were negative. Nuclear stress test done today showed stress-induced ischemia in the mid-ventricular wall, extending towards the apex. Interventional Cardiology has been consulted for further management and recommendations. REVIEW OF SYSTEMS Negative except for what is mentioned in the HPI. PAST MEDICAL HISTORY 1. Diabetes. 2. Obesity. 3. Smoker. 4. TIA. 5. Neuropathy. 6. Chronic back pain. ALLERGIES PENICILLIN. PAST SURGICAL HISTORY None. HOME MEDICATIONS Lortab. Duloxetine . FAMILY HISTORY Father had NH at 66 years old. SOCIAL HISTORY Smoker. Denies alcohol or illicit drug use. 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 PHYSICAL EXAMINATION VITAL SIGNS: Temperature 98, respiratory rate 20, heart rate 69, blood pressure 141/93, O2 sat 96% on room air. GENERAL: Awake, alert and oriented x 3. In no acute distress. NECK: No carotid bruits. HEART: Regular rhythm. No murmurs, rubs or gallops. LUNGS: Clear to auscultation bilaterally. No wheezes or rhonchi and rales. ABDOMEN: Obese. Positive bowel sounds. Soft, nontender, nondistended. EXTREMITIES: No cyanosis or edema. Pulses throughout. DATA CBC: Hemoglobin 40, hematocrit 43, platelet count of 248. INR 0.9. Chemistries: Sodium 137, potassium 4.7, BUN 11, creatinine 0.92. Troponin less than 0.02 x 3. CHEST X-RAY No acute cardiopulmonary process. MPI There is stress-induced ischemia in the anterior wall extending towards the apex , ejection fraction 50%. EKG Sinus rhythm with nonspecific ST changes. ASSESSMENT/PLAN 51-year-old male with cardiac risk factors that include obesity, hypertension, smoking, diabetes who presented to the hospital with angina radiating into the left arm and relieved by nitroglycerin. He remains afebrile and hemodynamically stable. He underwent a nuclear stress test today showing a small defect in the anterior wall that extends to the apex, low risk, however he continues with the chest pain with classic characteristic of angina relieved by sublingual nitro. I think, given his complaints and findings on nuclear stress test, it would be reasonable to do a left heart catheterization to further assess his coronary anatomy. Left heart cath/intervention risks including but not limited to bleeding, infection, acute kidney injury, stroke, emergent bypass surgery, neurovascular trauma and have been explained to the patient. The patient understands the risks and is willing to proceed. The patient will be scheduled for a left heart cath tomorrow. In the meantime continue aggressive medical management for CAD with aspirin, statins, beta blockers, ARELIS inhibitors and smoking cessation therapy. Thank you for the opportunity to participate in the care of this patient. Further therapy to be determined. MD JENNY Garcia/TIAN /6:58 PM /6:47 AM [place]
[2016-10-12] MEDS: METOPROLOL TARTRATE 25 MG TAB PO SCH (08:14)
[2016-10-12] MEDS: PANTOPRAZOLE SOD 40 MG DELAYED RELEASE TAB PO SCH (08:14)
[2016-10-12] MEDS: SODIUM CHLORIDE 0.9% FLUSH 5 ML FLUSH IVF SCH ×2 (08:15→08:16)
[2016-10-12 08:58] VITALS: PULSE 65
[2016-10-12] MEDS ORDERED: ASPIRIN 325 MG TAB PO SCH (09:00)
[2016-10-12] MEDS ORDERED: DULoxetine HCl DR 60 MG CAP PO SCH (09:00)
[2016-10-12] MEDS: ONDANSETRON HCL 4 MG/2 ML VIAL IV PRN ×2 (09:49→11:49)
[2016-10-12] MEDS ORDERED: MORPHINE SULFATE 4 MG/ML INJ IV PUSH PRN (10:00)
[2016-10-12] MEDS ORDERED: HEPARIN-NS/PF INJ 500 ML ONE (10:04)
[2016-10-12] MEDS ORDERED: MIDAZOLAM HCL 2 MG/2 ML VIAL ONE ×2 (10:07→10:19)
[2016-10-12] MEDS ORDERED: HEPARIN SODIUM - IV 10,000 UNITS/10 ML VIAL ONE (10:13)
[2016-10-12] MEDS ORDERED: VERAPAMIL HCL 5 MG/2 ML VIAL ONE (10:13)
[2016-10-12] MEDS ORDERED: MISC INFORMATION XX ONE (11:00)
--- NOTE | 2016-10-12 11:00 | CATHPROC ---
[address] HIS Report Study Information Study Number Admission Scheduled Start Study Start [id number] 10/11/2016 10/12/2016 Oct 12 2016 10:02AM Study Type Dale Service Left Heart Cath Cardiac Catheterization Referring Institution Admit Source Facility Department 1 Emergency department [facility] [employer] Operator Chief Physician and Clinical Staff Initial [facility] Director Ag Rankin,RN Assisted Living Home Director Edu Wright,MONICA Recorder Lj Ayala,(R) TECH2 Scrub Kristie Hinds,STUDIO DIRECTOR TECH2 Procedures Performed Procedure Location (Site) Vessel Name Coronary Angiograms LCA Left Coronary Coronary Angiograms RCA Right Coronary L Heart Cath LV Gram-hand inj. LV LV Ventricle Wire insertion Radial (right) Radial Art. Equipment Time Remedial Reading Teacher Description Size Mfg Part Number Used/Scraped TRANSDUCER, TRUWAVE 10:10 HU SCHAFER * [id number] Used W/Partigi CONCEPT DRAPE, RADIAL FEMORAL FULL 10:10 * [id number] Used DEVELOPMENT BODY 10:10 Ze-gen PACK, CCL CUSTOM * [id number] Used 10:10 Ze-gen SUPPORT, ARTERIAL ADULT [id number] Used 10:38 MEDTRONIC/AVE EBU 3.5 Z2 GUIDE CATHETER FR 6 [id number] Used BAND, RADIAL COMPRESSION TR 10:46 Bonobos MEDICAL 29CM [id number] Used LARGE 29 10:10 [employer]obos MEDICAL WIRE, 3MMJ .035 180CM 180CM [id number] Used [id number] 10:10 NAMIC MANIFOLD, 4 PORT * Used *[id number] 10:10 NYCOMED OMNIPAQUE, 350 MG, 100ML 100ML [id number] Used 10:10 ANTHONY MEDICAL BLANKET,WARM AIR CCL * [id number] Used SHEATH, FR6 TRANSRADIAL 10:10 TEROpposing ViewsO MEDICAL FR 6 [id number] Used SLENDER 10CM 10:34 [employer]OL[employer]O PRIME WIRE, VERRATA 185CM 185CM [id number] Used Equipment Model, Serial, Lot Number and Expiration Data Description Model Number Serial Number Lot Number Expiration Date PRIME WIRE, VERRATA 185CM [id number] 09-04-2019 History: Current Medications Medication Dosage/Unit Route Frequency Last Date/Time Taken Glucophage NTG SL ASA Beta Baudilio CLONIDINE History: Allergies Allergy Reaction Penicillin ITCHING History: Risk Factors Family History of Hypertension Dyslipidemia Previous [facility] Previous Heart Failure Premature CAD Yes Yes Yes No No Prior Valve Prior PCI Prior CABG Surgery No No No Cerebrovascular Peripheral Artery Chronic Lung On Dialysis Diabetes Diabetes Therapy Disease Disease Disease No Yes No No Yes Oral History: Symptoms/Diagnosis Selection Items Chest pain History: Stress Tests Stress or Imaging Studies Performed Yes Standard Exercise Stress Test No Stress Echo No Stress Test SPECT Stress Test SPECT Result Stress Test SPECT Ischemia Risk/Extent Yes Positive Low Stress Test CMR No Cardiac CTA Coronary Calcium Score No No History: Other Disease Selection Items HTN History: Other Current Smoker Method Packs a Day Years Used Pack Years Yes Cigarettes 1 30 30 Labs Hgb (g/dl) Hct (%) WBC (l/cumm) Platelets (thousands) 12.00-18.00 37.00-55.00 4.80-10.80 140.00-450.00 14.4 43.6 11.6 248 BUN (mg/dl) Creatinine (mg/dl) BUN:Creatinine (1:x) 8.00-20.00 0.10-9.00 10.00-20.00 11 0.9 12.2 Na (meq/l) K (meq/l) 138.00-146.00 3.80-5.10 137 4.5 Troponin I (ng/ml) CPK-MB (ng/ML) 0.40-2.30 0.00-7.00 0.02 Not Drawn Medication Medication Total Dose (Bolus/Oral) Medication Total Dosage/Unit 1% XYLOCAINE 5 mL FENTANYL 50 mcg HEPARIN 3000 units RADIAL COCKTAIL 5 mL (Bolus) VERSED 3 mg Medications (Bolus/Oral) Medication Time Given Dosage/Unit Administered By Reason VERSED 10/12/2016 10:18:34 AM 2 mg Ag Rankin 2 mg VERSED given in lab by Ag Rankin RN via Peripheral IV. Ordered by Yoel Taylor. FENTANYL 10/12/2016 10:18:38 AM 50 mcg Ag Rankin 50 mcg FENTANYL given in lab by Ag Rankin RN in Right Forearm via Peripheral IV. Ordered by Yoel Huber. 1% XYLOCAINE 10/12/2016 10:21:30 AM 5 mL Yoel Taylor 5 mL 1% XYLOCAINE given in lab by Yoel Taylor via Subcutaneous. Ntg 200mcg Verapamil 2.5mg Heparin RADIAL COCKTAIL 10/12/2016 10:23:33 AM 5 mL (Bolus) Yoel Taylor 2500U 5 mL (Bolus) RADIAL COCKTAIL given in lab by Yoel Taylor via Radial. Using [Solution Name]. Debra son: Ntg 200mcg Verapamil 2.5mg Heparin 2500U. HEPARIN 10/12/2016 10:32:00 AM 3000 units Edu Wright 3000 units HEPARIN given in lab by Edu Wright, MONICA via Peripheral IV. Ordered by Yoel Taylor . VERSED 10/12/2016 10:40:00 AM 1 mg Edu Wright 1 mg VERSED given in lab by Edu Wright, MONICA via Peripheral IV. Ordered by Yoel Taylor. Medication (Drip) Medication Time Given Dosage/Unit Concentration/Unit Diluent (ml) Solution IV Solutions 10/12/2016 10:05:15 AM 0 mL (IV) 500 NaCl .9 Patient arrived on IV Solutions via Peripheral IV. Pump/Drip Flow = 20 ml/hr using NaCl .9. Ordered b y Yoel Taylor. Initial Case Assessment Cardiovascular HR Rhythm NIBP Chest Pain 63 sr 170/96 0 Edema Present Skin color Skin None Normal Warm Dry Circulatory - Right Pulses Dorsalis Pedis Femoral Radial 2 2 2 Scale (0,1,2,3,4,d) Scale (0,1,2,3,4,d) Circulatory - Lower Extremities Color Lower Right Color Lower Left Normal Normal Neurological State Oriented to time-place- Alert Moves all extremities person Respiration - General SpO2 (%) 94 Final Case Assessment Cardiovascular HR Rhythm NIBP Chest Pain 63 sr 150/92 0 Edema Present Skin color Skin None Normal Warm Dry Circulatory - Right Pulses Dorsalis Pedis Femoral Radial 2 2 2 Scale (0,1,2,3,4,d) Scale (0,1,2,3,4,d) Neurological State Oriented to time-place- Alert Moves all extremities person Respiration - General SpO2 (%) 98 Chronological Log Time Study Chronological Log 10:04:57 Patient arrived via Bed. 10:04:58 Patient Name, D.O.B, / Armband Verified By R.N. 10:04:58 Consent signed by the physician and the patient and verified by the [employer] Operator Chief staff. 10:05:00 Allens test performed on the right radial and ulnar artery. 10:05:02 Patient has been NPO for Less than 6Hrs. 10:05:06 Skin Breakdown- none 10:05:09 Patient Warmer Placed on the Table. 10:05:12 Cristobal Prominences Protected 10:05:14 A # 20 IV was noted in the Forearm (right). Grade = 0 Patient arrived on IV Solutions via Peripheral IV. Pump/Drip Flow = 20 ml/hr using NaCl .9. Ord ered by Claudia 10:05:15 Yoel. 10:05:16 History and physical on the chart or being dictated. Assessment: Initial Case, HR=63 BPM, Rhythm=sr, FGSB=652/96 mmhg, Chest Pain=0, Edema=None, Col or=Normal, Skin = Warm, Dry Right Pulses: Tono Ped=2, Femoral=2, Radial=2 10:05:17 Lower Right Extremities: Color=Normal Lower Left Extremities: Color=Normal Neurological: State=Alert, Ox3, HOWELL Respiration: SpO2=94 % 10:05:20 Table restraints applied according to hospital policy 10:05:21 Right groin prepped with 2% chlorhexidine, and with a 3 min. waiting time. Vitals capture started with the following parameters, Patient=Adult, Interval=5 min, Initial Pr ffaqcp=386 mmHg, 10:13:17 Deflation Rate=5 mmHg 10:14:11 Reference ECG taken 10:14:49 HR=62 bpm, MDJE=919/105 mmhg, SpO2=96.0 %, Resp=11 B/min, Pain=0, Suman=10, Cruz=2 10:18:34 2 mg VERSED given in lab by Ag Rankin, RN via Peripheral IV. Ordered by Marcia Taylor 10:18:38 50 mcg FENTANYL given in lab by Ag Rankin RN in Right Forearm via Peripheral IV. Order ed by Yoel Taylor. 10:19:07 HR=61 bpm, LCSC=158/96 mmhg, SpO2=96.0 %, Resp=13 B/min, Pain=0, Suman=10, Cruz=2 10:20:00 Pressure channel 1 zeroed. Time Out. Correct patient, correct procedure,correct physician, ,power injector loaded or not l oaded with contrast with 10:21:20 surgical team present. Time Out Concurred by MD, individual staff and OUTSOLE CEMENTER MACHINE in procedure 10::27 Case Start 10::30 5 mL 1% XYLOCAINE given in lab by Yoel Taylor via Subcutaneous. 10:21:48 Access site was Radial Artery. A SHEATH, FR6 TRANSRADIAL SLENDER 10CM FR 6 was advanced into the Radial (right) using the Hunter fied Seldinger 10:23:32 technique. 5 mL (Bolus) RADIAL COCKTAIL given in lab by Yoel Taylor via Radial. Using [Solution Name ]. Reason: Ntg 10:23:33 200mcg Verapamil 2.5mg Heparin 2500U. A JR 4.0 INFINITI CATHETER FR 5 was advanced over a wire. OMNIPAQUE, 350 MG, 100ML 100ML was us ed for 10:23:44 injections. 10:24:00 The RCA was injected and visualized at various angles. OMNIPAQUE, 350 MG, 100ML 100ML used . 10:24:02 HR=65 bpm, OLAO=667/86 mmhg, SpO2=96.0 %, Resp=10 B/min, Pain=0, Suman=10, Cruz=2 Recorded Pressure: LV, HR=72, Condition=Condition 1 10:24:51 (Left Ventricle) LV 130/15/20 Recorded Pressure: LV, Ao, HR=63, Condition=Condition 1 10:25:54 (Left Ventricle) LV 137/9/20, (Aorta) Ao 133/91/109 10:26:31 The LV was manually injected with 10 cc's and visualized. OMNIPAQUE, 350 MG, 100ML 100ML us ed. After removing the current catheter a JL 3.5 INFINITI CATHETER FR 5 was advanced over a WIRE, 3 MMJ .035 180CM 10:26:45 180CM. 10:26:50 The LCA was injected and visualized at various angles. OMNIPAQUE, 350 MG, 100ML 100ML used . Recorded Pressure: Ao, HR=67, Condition=Condition 1 10:28:57 (Aorta) Ao 152/93/119 10:29:05 HR=57 bpm, YNUE=774/87 mmhg, SpO2=93.0 %, Resp=16 B/min, Pain=0, Suman=10, Cruz=2 10:30:39 Catheter was removed 10:32:00 3000 units HEPARIN given in lab by Edu Wright, MONICA via Peripheral IV. Ordered by Yoel Tai. Vitals capture started with the following parameters, Patient=Adult, Interval=5 min, Initial Pr wvzhan=063 mmHg, 10:33:42 Deflation Rate=5 mmHg 10:34:28 Reference ECG taken 10:36:14 Pressure channel 1 zeroed. After removing the current catheter a EBU 3.5 Z2 GUIDE CATHETER FR 6 was advanced over a WIRE, 3MMJ .035 10:39:59 180CM 180CM. 10:40:00 1 mg VERSED given in lab by Edu Wright, MONICA via Peripheral IV. Ordered by Dominic Taylor. 10:40:11 A PRIME WIRE, VERRATA 185CM 185CM was inserted via Radial (right). 10:40:53 Flow Wire was was placed in the LAD Mid. The FFR measures ~FFR~ percent. The IFR measures 0 .95 Percent. 10:43:39 The wire was removed. 10:43:45 Catheter was removed 10:44:01 Case End Assessment: Final Case, HR=63 BPM, Rhythm=sr, KCWM=821/92 mmhg, Chest Pain=0, Edema=None, Color =Normal, Skin = Warm, Dry 10:44:45 Right Pulses: Tono Ped=2, Femoral=2, Radial=2 Neurological: State=Alert, Ox3, HOWELL Respiration: SpO2=98 % 10:45:13 NIBP STAT measurement started. 10:45:36 Sheath removed; pressure applied to access site. Radial Compression Device Used. 12 mLs of air placed in BAND, RADIAL COMPRESSION TR LARGE 29 29 CM. Affected 10:45:39 hand 98 % O2 saturation. 10:45:55 HR=66 bpm, MXQW=490/91 mmhg, SpO2=95.0 %, Resp=13 B/min, Pain=0, Suman=10, Cruz=2 10:46:25 No case complications noted. 10:46:33 Cine recording checked. 10:46:37 Bedside Report will be given. 10:46:41 Contrast Scanned 10:46:44 A Left Heart Cath was performed. 10:46:47 Clinical correlaton risk stratification. 10:50:52 Vitals capture stopped. 10:52:24 Patient moved to stretcher End Study - Contrast Media Used In Study Contrast Total Opened (mL) Total Used (mL) Total Wasted (mL) Omnipaque 150 70 80 End Study - Maximum Contrast Load Max Contrast Load (mL) 601.0 End Study - Radiation Exposure Fluoro Time (minutes) 5.2 End Study - Sheaths Sheaths Pulled By Sheath Hold Time (min) Kristie Hinds End Study - Patient Disposition Complications Transferred To Interventional Outcome No [employer] Operator Chief Holding No attempt made
--- NOTE | 2016-10-12 11:42 | MA ---
cc: CCList DATE: 10/12/2016 DATE OF : 1965 PROCEDURE PERFORMED 1. Left heart catheterization 2. Selective right and left coronary angiography. 3. Left ventriculogram. 4. ISR to LAD INDICATION Angina./Positive stress test / low-risk. DESCRIPTION OF PROCEDURE Consent signed. The patient was brought into the cardiac pathology laboratory aides teacher in a fasting state. The right wrist was prepped and draped in sterile fashion using 1% lidocaine for local anesthesia and a micropuncture kit a 6-Chinese sheath was inserted into the right radial artery and is passed antispasmodic cocktail given , selective right and left coronary angiography was performed with a JR-4 and a JL-3.5 diagnostic catheters. Angiography was taken in multiple views. The JR diagnostic catheter was introduced over a wire to the ventricles, this was followed by pressure recordings, left ventriculogram on pullback. We identified the lesion in the mid LAD with some CORNELL III flow of questionable hemodynamic significance. We decided to FFR this lesion for this, heparin IV was given for IV anticoagulation the left main was engaged with an EBU 3.5 wire. The pressure wire was normalized outside the vessel. This was followed by crossing the vessel and anchored wire distally and then an IFR recording was done and the final IFR result was 0.981, which is negative for ischemia. Thus procedure was finalized, the patient tolerated the procedure well without complications. Estimated blood loss less than 30 cc total contrast used 70 cc. The right radial access site was closed with a TR band. RESULTS LEFT VENTRICULOGRAM The left ventriculogram revealed a symmetric tabatha ventricle with an estimated ejection fraction of 60%. The left ventricular pressure was 137 over 9 with an LVEDP of 20. The aortic pressure was 150/92 with a mean of 118. There was no gradient upon pull pullback from the left ventricle to aorta. ANGIOGRAPHIC RESULTS 1. Right coronary artery is a dominant vessel giving off the PDA there is a minimal luminal irregularities, however, no significant obstructive cause of coronary artery disease. 2. Left main is short and patent with CORNELL III flow. 3. Left anterior descending is a transapical vessel. It is mildly calcified. It has a mid 50% lesion which was IFR which was negative. The left anterior descending is giving off three small diagonal vessels which have minimal luminal irregularities CORNELL III flow. 4. Left circumflex is a pretty big vessel consisting of two small OM1s and a big om3 that goes all the way into the lateral wall apex. This vessel has minimal luminal irregularities and has CORNELL III flow and nonobstructive coronary artery disease. 5. There is a small ramus which has a 80% lesion at its ostium. CONCLUSION 1. Nonobstructive coronary artery 2. Negative iFR of the LAD. 2. Elevated left ventricular end-diastolic pressure. 3. Preserve left ventricle systolic function. RECOMMENDATIONS 1. Optimal medical management for her primary prevention of coronary artery disease. 2. Therapeutic lifestyle changes 3. Smoking cessation. MD JENNY Garcia/urbano /10:51 AM /11:23 AM MTDPayam
[2016-10-12] MEDS ORDERED: IBUPROFEN 400 MG TAB PO ONE (12:00)
[2016-10-12] MEDS ORDERED: Aspirin Chew PO (13:35)
[2016-10-12] MEDS ORDERED: ISOS30TA3 PO (13:35)
[2016-10-12] MEDS ORDERED: METO25TA3 PO (13:35)
--- NOTE | 2016-10-12 13:37 | HHI.DS ---
Discharge Summary Admission Date October 11, 2016 at 10:02 Discharge Date: October 12, 2016 Admitting Diagnosis chest pain (1) CAD (coronary artery disease) ICD Code: I25.10 Diagnosis: Principal (2) Chest pain ICD Code: R07.9 Diagnosis: Principal Procedures nuclear stress test on 10/11/16 cardiac catheterization on 10/12/16 Brief History - From Admission This is a 51-year-old male that presents to ED via private vehicle with history of diabetes, chronic back pain, neuropathy, TIA, and tobacco abuse with a complaint of a chest pressure. He states he had a chest pressure began around midnight last night. 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 It was a 7-8 out of 10. see HPI for further information. CBC/BMP: 10/11/16 0848 10/11/16 0848 Significant Findings Laboratory Tests Test 10/11/16 10/11/16 08:48 16:20 White Blood Count 11.6 TH/MM3 (4.0-11.0) Monocytes (%) (Auto) 11.2 % (0.0-8.0) Monocytes # (Auto) 1.3 TH/MM3 (0-0.9) Estimat Glomerular Filtration 86 ML/MIN (>89) Rate Random Glucose 212 MG/DL (74-106) Hemoglobin A1c 7.7 % (4.3-6.0) Troponin I LESS THAN 0.02 LESS THAN 0.02 NG/ML NG/ML (0.02-0.05) (0.02-0.05) Imaging Last Impressions Chest X-Ray 10/11/16 0825 Signed Impressions: Service Date/Time: Tuesday, October 11, 2016 08:22 - CONCLUSION: Minimal left basilar atelectasis. Bob Arrington MD Myocardial Perfusion Scan Nuc Med 10/11/16 0000 Signed Impressions: Service Date/Time: Tuesday, October 11, 2016 12:18 - CONCLUSION: Findings suspicious for minimal stress-induced ischemia beginning in the mid ventricular wall extending towards the apex. RISK CATEGORY: Low (<1%% Annual Mortality Rate) Fadi Rodriguez MD FACR PE at Discharge GENERAL: in NAD SKIN: Warm and dry. HEAD: Normocephalic. EYES: No scleral icterus. No injection or drainage. NECK: Supple, trachea midline. No JVD or lymphadenopathy. CARDIOVASCULAR: Regular rate and rhythm without murmurs, gallops, or rubs. RESPIRATORY: Breath sounds equal bilaterally. No accessory muscle use. GASTROINTESTINAL: Abdomen soft, non-tender, nondistended. MUSCULOSKELETAL: No cyanosis, or edema. BACK: Nontender without obvious deformity. No CVA tenderness. NEURO: AAO X 3. CN 2-12 intact.motor and sensory grossly intact. coordination intact. Pt update on day of discharge f/u for chest pain patient stated he continues to feel the tingling sensation on his left arm that has improve. c/o ALAMO from the nitroglycerin where the paste was taken off last night. denied any N/V, visual changes or focal neurological deficits. Hospital Course Chest pain -Atypical but patient does have a positive nuclear stress test. EKG not impressive. Troponin negative. -cardiac catheterization showed nonobstructing CAD. -Grocery Bagger recommended medial management. lipid panel order place but labs were not drawn. patient told to f/u wit his PCP in regards to checking lipid panel to determine if he needs treatment. Type 2 diabetes -Patient is not on any medication. -Hg A1C7.7. -patient told to f/u with PCP in regards to treatment. Chronic back pain: - Continue his medications. Tobacco abuse - Patient has been counseled on importance of smoking cessation. Pt Condition on Discharge: Good Discharge Disposition: Discharge Home Discharge Time: <= 30 minutes Discharge Instructions DIET: Follow Instructions for: Heart Healthy Diet, Diabetic Diet Activities you can perform: See Additionl Instruction Other Activity Instructions: as directed by Grocery Bagger Follow up Referrals: PCP Follow-up - 1 Week New Medications: Isosorbide Mononitrate ER (Isosorbide Mononitrate ER) 30 Mg Julian 30 MG PO DAILY@07 CAD #30 Ref 0 TAB Metoprolol Tartrate (Metoprolol Tartrate) 25 Mg Tab 25 MG PO Q12HR CAD #30 Ref 0 TAB ([Aspirin Chew]) 81 MG CHEW 81 MG PO DAILY CAD #30 Ref 0 TAB.CHEW Continued Medications: Duloxetine DR (Duloxetine DR) 60 Mg Capdr 60 MG PO DAILY #30 Ref 0 CAP Hydrocodone-Acetaminophen (Lortab) 10-325 Mg Tab 1 TAB PO Q8HR PRN PAIN Ref 0 TAB Miranda Chang MD October 12, 2016 13:37
[2016-10-12] MEDS ORDERED: IOHEXOL 350 MG/ML 100 ML BTL (for Cath Lab) OTHER ONE (14:02)
--- NOTE | 2016-10-12 17:58 | TR ---
Date Performed: 10/11/2016 Time Performed: 11:38:47 DOCTOR: Tamra King DRUG LIST: CLINICAL HISTORY: REASON FOR TEST: REASON FOR ENDING: OBSERVATION: CONCLUSION: NUC ETT. NO CP. PT WAS SOB.Maximum MQ=428 % Max HR Achieved=86.0% Maximum TD=629/86 Total Exercise Time=8:16 COMMENTS:
--- NOTE | 2016-10-12 17:58 | EKG ---
Date Performed: 10/11/2016 Time Performed: 08:10:07 PTAGE: 51 years EKG: Sinus rhythm NONSPECIFIC T-WAVE ABNORMALITY BORDERLINE ECG Since PREVIOUS TRACING , no significant change noted PREVIOUS TRACIN08/17/2014 17.51 DOCTOR: Tamra King Interpretating Date/Time 10/12/2016 17:56:55
[2016-10-13] MEDS ORDERED: ISOSORBIDE MONONITRATE 30 MG TAB PO SCH (07:00)
[2016-10-13] MEDS ORDERED: ASPIRIN 81 MG CHEW TAB PO SCH (09:00)
== END 2016-10-12 15:10 | disposition home or self-care (01) ==
LOC: NEPC 07:58 → NEDA 10:02 → NEPGCP 11:31 → HCIS 10-12 13:19
PROVIDERS: ADMIT Family Medicine; ATTEND Family Medicine
DX: I25.119 Atherosclerotic heart disease of native coronary artery with unspecified angina pectoris (principal); I25.84 Coronary atherosclerosis due to calcified coronary lesion; E11.9 Type 2 diabetes mellitus without complications; G62.9 Polyneuropathy, unspecified; M54.9 Dorsalgia, unspecified; G89.29 Other chronic pain; F17.210 Nicotine dependence, cigarettes, uncomplicated; E66.9 Obesity, unspecified; Z86.73 Personal history of transient ischemic attack (TIA), and cerebral infarction without residual deficits; Z88.0 Allergy status to penicillin; Z82.49 Family history of ischemic heart disease and other diseases of the circulatory system; Z68.33 Body mass index [BMI] 33.0-33.9, adult
CPT/HCPCS: 71010; 78452; 80048; 82550; 82552; 82948; 83036; 83735; 84484; 85025; 85610; 85730; 93005; 93017; 93458; 93571; 99285; A9502; C1769; C1893; G0378; J1644; J1815; J1885; J2250; J2405; J3010; J7030; Q9967

== ENCOUNTER 2016-12-22 17:04 | Emergency (ER) | payer SELFPAY ==
[~2016-12-22] VITALS: Ht 175.3 cm; Wt 103.7 kg
[~2016-12-22 17:04] MED LIST changes: +Aspirin Chew PO; -BACT800T5 PO; -CEPH-460 PO; +DULO1CAP3 PO; -DULO20 PO; +HYDR-3535 PO; +ISOS30TA3 PO; +METO25TA3 PO
[2016-12-22] MEDS ORDERED: SODIUM CHLORIDE 0.9% FLUSH 10 ML FLUSH IVF PRN (17:15)
[2016-12-22] MEDS ORDERED: SODIUM CHLOR 0.9% 1000 ML INJ 1,000 ML IV ONE (17:15)
[2016-12-22 17:20] VITALS: BP 135/88; PULSE 68; RESP 14; TEMP 98.7; O2SAT 95
--- NOTE | 2016-12-22 17:20 | PD ---
HPI Chief Complaint: Diabetic Time Seen by Provider: 17:15 Travel History International Travel<30 days: No Contact w/Intl Traveler<30days: No Traveled to known affect area: No History of Present Illness HPI 51-year-old male with history of diabetes, noncompliant with medications, presents to the ER today because of elevated blood sugars according to his . She states that it read 580 this morning. Patient has had several "high " readings in the past few days. He has had several weeks' history of polyuria and blurry vision according to but he has refused to come get care. He denies any fevers, vomiting, or any other symptoms. He did take his metformin yesterday and today. She states that he usually does not take it on a regular basis. Modifying Factors: None Associated Signs & Symptoms: Elevated blood sugar Risk Factors: Diabetic, noncompliant with meds PFSH Past Medical History Heart Rhythm Problems: No Cardiac Catheterization: No Cardiovascular Problems: No High Cholesterol: No Congestive Heart Failure: No Cerebrovascular Accident: Yes Diabetes: Yes Diminished Hearing: No Hypertension: No Musculoskeletal: Yes (Chronic back pain ) Neurologic: Yes (NEUROPATHY) Immunizations Current: No Myocardial Infarction: No Past Surgical History Coronary Artery Bypass Graft: No Social History Alcohol Use: No Tobacco Use: Yes (/2 PPD) Substance Use: No Allergies-Medications (Allergen,Severity, Reaction): Coded Allergies: Penicillin (Verified Allergy, Unknown, Unknown, 12/22/16) Reported Meds & Prescriptions Reported Meds & Active Scripts Active Reported Lortab (Hydrocodone-Acetaminophen) 10-325 Mg Tab 1 Tab PO Q8HR PRN Duloxetine DR (Duloxetine HCl) 60 Mg Capdr 60 Mg PO DAILY Review of Systems Except as stated in HPI: all other systems reviewed are Neg Physical Exam Narrative GENERAL: Well-developed middle age white male patient currently in no acute distress. Awake and oriented 3. SKIN: Focused skin assessment warm/dry. HEAD: Atraumatic. Normocephalic. EYES: Pupils equal and round. No scleral icterus. No injection or drainage. ENT: No nasal bleeding or discharge. Mucous membranes pink and moist. NECK: Trachea midline. No JVD. CARDIOVASCULAR: Regular rate and rhythm. No murmur appreciated. RESPIRATORY: No accessory muscle use. Clear to auscultation. Breath sounds equal bilaterally. GASTROINTESTINAL: Abdomen soft, non-tender, nondistended. Hepatic and splenic margins not palpable. MUSCULOSKELETAL: No obvious deformities. No clubbing. No cyanosis. No edema. NEUROLOGICAL: Awake and alert. No obvious cranial nerve deficits. Motor grossly within normal limits. Normal speech. PSYCHIATRIC: Appropriate mood and affect; insight and judgment normal. Data Data Last Documented VS Vital Signs Date Time Temp Pulse Resp B/P Pulse Ox O2 Delivery O2 Flow Rate FiO2 12/22/16 17:20 98.7 68 14 135/88 95 12/22/16 17:20 Room Air Orders Complete Blood Count With Diff (12/22/16 17:15) Comprehensive Metabolic Panel (12/22/16 17:15) Beta Hydroxybutyrate (Acetone) (12/22/16 17:15) Urinalysis - C+S If Indicated (12/22/16 17:15) Ecg Monitoring (12/22/16 17:15) Iv Access Insert/Monitor (12/22/16 17:15) Oximetry (12/22/16 17:15) Sodium Chloride 0.9% Flush (Ns Flush) (12/22/16 17:15) Sodium Chlor 0.9% 1000 Ml Inj (Ns 1000 M (12/22/16 17:15) Insulin Human Regular Inj (Novolin R Inj (12/22/16 18:30) Labs Laboratory Tests Test 12/22/16 12/22/16 17:30 17:35 Urine Color YELLOW Urine Turbidity CLEAR Urine pH 6.0 Urine Specific [place] GREATER THAN 1.035 Urine Protein NEG mg/dL Urine Glucose (UA) 1000 OR GREATER mg/dL Urine Ketones NEG mg/dL Urine Occult Blood NEG Urine Nitrite NEG Urine Bilirubin NEG Urine Leukocyte Esterase NEG Urine RBC 0-3 /hpf Urine WBC 0-2 /hpf Urine Squamous Epithelial 0-5 /hpf Cells Microscopic Urinalysis Comment CULT NOT INDICATED White Blood Count 12.2 TH/MM3 Red Blood Count 5.30 MIL/MM3 Hemoglobin 15.2 GM/DL Hematocrit 45.6 % Mean Corpuscular Volume 86.1 FL Mean Corpuscular Hemoglobin 28.7 PG Mean Corpuscular Hemoglobin 33.3 % Concent Red Cell Distribution Width 12.8 % Platelet Count 290 TH/MM3 Mean Platelet Volume 8.3 FL Neutrophils (%) (Auto) 67.4 % Lymphocytes (%) (Auto) 23.6 % Monocytes (%) (Auto) 5.8 % Eosinophils (%) (Auto) 1.5 % Basophils (%) (Auto) 1.7 % Neutrophils # (Auto) 8.2 TH/MM3 Lymphocytes # (Auto) 2.9 TH/MM3 Monocytes # (Auto) 0.7 TH/MM3 Eosinophils # (Auto) 0.2 TH/MM3 Basophils # (Auto) 0.2 TH/MM3 CBC Comment DIFF FINAL Differential Comment Sodium Level 139 MEQ/L Potassium Level 4.5 MEQ/L Chloride Level 104 MEQ/L Carbon Dioxide Level 28.5 MEQ/L Anion Gap 7 MEQ/L Blood Urea Nitrogen 9 MG/DL Creatinine 0.96 MG/DL Estimat Glomerular Filtration 82 ML/MIN Rate Random Glucose 410 MG/DL Calcium Level 8.7 MG/DL Total Bilirubin 0.4 MG/DL Aspartate Amino Transf 20 U/L (AST/SGOT) Alanine Aminotransferase 51 U/L (ALT/SGPT) Alkaline Phosphatase 141 U/L Total Protein 7.3 GM/DL Albumin 3.5 GM/DL B-Hydroxybutyrate LESS THAN 0.01 MMOL/L MDM Medical Decision Making Medical Screen Exam Complete: Yes Emergency Medical Condition: Yes Medical Record Reviewed: Yes Interpretation(s) Laboratory Tests Test 12/22/16 12/22/16 17:30 17:35 Urine Specific [place] GREATER THAN 1.035 (1.002-1.035) Urine Glucose (UA) 1000 OR GREATER mg/dL (NEG) White Blood Count 12.2 TH/MM3 (4.0-11.0) Neutrophils # (Auto) 8.2 TH/MM3 (1.8-7.7) Estimat Glomerular Filtration 82 ML/MIN (>89) Rate Random Glucose 410 MG/DL (74-106) Alkaline Phosphatase 141 U/L (45-117) Differential Diagnosis Hyperglycemiarule out DKA versus other metabolic issues versus dehydration Narrative Course Lab work shows elevated glucose of 400. The rest of the lateral light was unremarkable. Ketones were negative. At this point, patient was given insulin and IV fluids. Plan would be to release the patient with further follow-up to primary care physician. He will need to take his metformin more consistently. Check blood sugars daily. Return for any worsening in symptoms as needed. The plan has been discussed with patient and family and they state understanding. Diagnosis Primary Impression: Hyperglycemia Disposition: 01 DISCHARGE HOME Condition: Stable Elizabeth Bowling MD Dec 22, 2016 17:20 Condition: Stable Elizabeth Bowling MD Dec 22, 2016 17:20
[2016-12-22 17:40] LABS: AUTOMATED NEUTROPHIL # 8.2 TH/MM3 (1.8-7.7); BASOPHIL # 0.2 TH/MM3 (0-0.2); BASOPHIL % 1.7 % (0.0-2.0); EOSINOPHIL # 0.2 TH/MM3 (0-0.4); EOSINOPHIL % 1.5 % (0.0-4.0); HEMATOCRIT 45.6 % (39.0-51.0); HEMO FLAGS DIFF FINAL; LYMPH % 23.6 % (9.0-44.0); LYMPHOCYTE # 2.9 TH/MM3 (1.0-4.8); MEAN CELL VOLUME 86.1 FL (80.0-100.0); MEAN CORPUSCULAR HEMOGLOBIN 28.7 PG (27.0-34.0); MEAN CORPUSCULAR HGB CONC 33.3 % (32.0-36.0); MONO % 5.8 % (0.0-8.0); NEUT % 67.4 % (16.0-70.0); PLATELET COUNT 290 TH/MM3 (150-450); RED CELL DISTRIBUTION WIDTH 12.8 % (11.6-17.2); WHITE BLOOD COUNT 12.2 TH/MM3 (4.0-11.0)
[2016-12-22 17:41] LABS: BLOOD, URINE NEG (NEG); GLUCOSE,URINE 1000 OR GREATER mg/dL (NEG); KETONE, URINE NEG (NEG); NITRITE,URINE NEG (NEG)
[2016-12-22 17:42] LABS: URINE COLOR YELLOW (YELLW/STRAW)
[2016-12-22 17:45] LABS: RBC, URINE 0-3 /hpf (0-3); SQUAMOUS EPITHELIAL CELL URINE 0-5 /hpf (0-5); WBC, URINE 0-2 /hpf (0-5)
[2016-12-22 17:46] LABS: COMMENT (UR) CULT NOT INDICATED; CULTURE IF INDICATED CULT NOT INDICATED
[2016-12-22 17:48] LABS: CHLORIDE 104 MEQ/L (98-107); POTASSIUM 4.5 MEQ/L (3.5-5.1); SODIUM (NA) 139 MEQ/L (136-145)
[2016-12-22 17:52] LABS: ANION GAP 7 MEQ/L (5-15); BICARBONATE 28.5 MEQ/L (21.0-32.0)
[2016-12-22 18:17] LABS: ALKALINE PHOSPHATASE 141 U/L (45-117); ALT (GPT) 51 U/L (12-78); AST (GOT) 20 U/L (15-37); BETA-HYDROXYBUTYRATE LESS THAN 0.01 MMOL/L (0.00-0.39); BLOOD UREA NITROGEN 9 MG/DL (7-18); GLOMERULAR FILTRATION RATE 82 ML/MIN (>89); TOTAL BILIRUBIN ADULT 0.4 MG/DL (0.2-1.0)
[2016-12-22] MEDS ORDERED: INSULIN HUMAN REGULAR 1,000 UNITS/10 ML VIAL IV PUSH ONE (18:30)
[2016-12-22] MEDS ORDERED: GABAPENTIN 100 MG CAP PO ONE (18:30)
[2016-12-22 19:17] VITALS: BP 132/78; PULSE 80; RESP 18; O2SAT 98
== END 2016-12-22 19:18 | disposition home or self-care (01) ==
LOC: PHED 17:04
DX: E11.65 Type 2 diabetes mellitus with hyperglycemia (principal); Z91.14 Patient's other noncompliance with medication regimen
CPT/HCPCS: 80053; 81001; 82010; 85025; 96361; 96374; 99284; J1815; J7030

== ENCOUNTER 2017-01-19 22:33 | Emergency (ER) | payer SELFPAY ==
[~2017-01-19] VITALS: Ht 175.3 cm; Wt 102.0 kg
[~2017-01-19 22:33] MED LIST changes: -Aspirin Chew PO; -ISOS30TA3 PO; -METO25TA3 PO
[2017-01-19 22:40] VITALS: BP 141/90; PULSE 94; RESP 18; TEMP 98.2; O2SAT 95
--- NOTE | 2017-01-19 22:47 | PD ---
Physical Exam Date Seen by Provider: Jan 19, 2017 Time Seen by Provider: 22:45 Narrative 51 YOWM H/O DM . BGL AT HOME OVER 500.. NOW IN THE ER BGL 317. ALAMO ,BLURRED VISION, BODY ACHES, MALAISE. NO F/C,N/V/D TODAY. VS NOTED WAITING BED PLACEMENT Data Data Last Documented VS Vital Signs Date Time Temp Pulse Resp B/P Pulse Ox O2 Delivery O2 Flow Rate FiO2 01/19/17 22:40 98.2 94 18 141/90 95 Room Air MDM Supervised Visit with RADHA: Jacek Olivares Jan 19, 2017 22:47
[2017-01-19] MEDS ORDERED: SODIUM CHLOR 0.9% 1000 ML INJ 1,000 ML IV ONE (23:09)
[2017-01-19] MEDS ORDERED: INSULIN HUMAN REGULAR 1,000 UNITS/10 ML VIAL IV PUSH ONE (23:15)
[2017-01-19] MEDS ORDERED: METF500T PO (23:15)
--- NOTE | 2017-01-19 23:55 | PD ---
HPI Chief Complaint: Diabetic Time Seen by Provider: 23:00 Travel History International Travel<30 days: No Contact w/Intl Traveler<30days: No Traveled to known affect area: No History of Present Illness HPI 51-year-old male complains of body aches blurred vision and hyperglycemia. He reports his blood glucose outside of the hospital was approximately 500. He drank a few bottles of water since then. Upon arrival here the blood glucose was 317. Before the onset of the symptoms he had eaten [employer] and drank a little of his son's Coca-Cola. The patient reports the body aches and pains and blurred vision is typical for him during hypoglycemic episodes. He reports blood work done just 2 days ago is essentially unremarkable. No nausea vomiting. No chest pain or shortness of breath. No fever. PFSH Past Medical History Heart Rhythm Problems: No Cardiac Catheterization: Yes (No intervention, per pt. ) Cardiovascular Problems: No High Cholesterol: No Chest Pain: Yes Congestive Heart Failure: No Cerebrovascular Accident: Yes Diabetes: Yes Diminished Hearing: No Hypertension: Yes Musculoskeletal: Yes (Chronic back pain ) Neurologic: Yes (Neuropathy ) Immunizations Current: No Myocardial Infarction: No Past Surgical History Coronary Artery Bypass Graft: No Social History Alcohol Use: No Tobacco Use: Yes (/2 PPD) Substance Use: No Allergies-Medications (Allergen,Severity, Reaction): Coded Allergies: penicillin G (Unverified Allergy, Unknown, Unknown, 01/19/17) Reported Meds & Prescriptions Reported Meds & Active Scripts Active Reported Metformin (Metformin HCl) 500 Mg Tab 500 Mg PO DAILY With a meal Lortab (Hydrocodone-Acetaminophen) 10-325 Mg Tab 1 Tab PO Q8HR PRN Duloxetine DR (Duloxetine HCl) 60 Mg Capdr 60 Mg PO DAILY Review of Systems Except as stated in HPI: all other systems reviewed are Neg Physical Exam Narrative GENERAL: Well-nourished 51-year-old male no distress speaking full sentences SKIN: Warm and dry. HEAD: Atraumatic. Normocephalic. EYES: Pupils equal and round. No scleral icterus. No injection or drainage. ENT: No nasal bleeding or discharge. Mucous membranes pink and moist. NECK: Trachea midline. No JVD. CARDIOVASCULAR: Regular rate and rhythm. RESPIRATORY: No accessory muscle use. Clear to auscultation. Breath sounds equal bilaterally. GASTROINTESTINAL: Abdomen soft, non-tender, nondistended. Hepatic and splenic margins not palpable. MUSCULOSKELETAL: Extremities without clubbing, cyanosis, or edema. No obvious deformities. NEUROLOGICAL: Awake and alert. No obvious cranial nerve deficits. Motor grossly within normal limits. Five out of 5 muscle strength in the arms and legs. Normal speech. PSYCHIATRIC: Appropriate mood and affect; insight and judgment normal. Data Data Last Documented VS Vital Signs Date Time Temp Pulse Resp B/P Pulse Ox O2 Delivery O2 Flow Rate FiO2 01/20/17 02:31 74 16 130/85 94 01/20/17 02:25 Room Air 01/19/17 22:40 98.2 Vital signs reviewed Orders Blood Glucose (01/19/17 23:09) Blood Glucose (01/20/17 00:09) Iv Access Insert/Monitor (01/19/17 23:09) Sodium Chlor 0.9% 1000 Ml Inj (Ns 1000 M (01/19/17 23:09) Insulin Human Regular Inj (Novolin R Inj (01/19/17 23:15) Acetaminophen (Tylenol) (01/20/17 00:00) Sodium Chlor 0.9% 1000 Ml Inj (Ns 1000 M (01/20/17 00:30) Electrocardiogram (01/20/17 00:29) Comprehensive Metabolic Panel (01/20/17 00:29) Magnesium (Mg) (01/20/17 00:29) Beta Hydroxybutyrate (Acetone) (01/20/17 00:29) Chest, Single Ap (01/20/17 00:29) Ecg Monitoring (01/20/17 00:29) Iv Access Insert/Monitor (01/20/17 00:29) Oximetry (01/20/17 00:29) Troponin I (01/20/17 00:29) Labs Laboratory Tests Test 01/20/17 00:20 Sodium Level 137 MEQ/L Potassium Level 4.2 MEQ/L Chloride Level 100 MEQ/L Carbon Dioxide Level 29.9 MEQ/L Anion Gap 7 MEQ/L Blood Urea Nitrogen 15 MG/DL Creatinine 1.03 MG/DL Estimat Glomerular Filtration 76 ML/MIN Rate Random Glucose 335 MG/DL Calcium Level 8.7 MG/DL Magnesium Level 1.7 MG/DL Total Bilirubin 0.3 MG/DL Aspartate Amino Transf 14 U/L (AST/SGOT) Alanine Aminotransferase 34 U/L (ALT/SGPT) Alkaline Phosphatase 124 U/L Troponin I LESS THAN 0.02 NG/ML Total Protein 7.2 GM/DL Albumin 3.6 GM/DL B-Hydroxybutyrate 0.14 MMOL/L MDM Medical Decision Making Medical Screen Exam Complete: Yes Emergency Medical Condition: Yes Differential Diagnosis Hyperglycemia, DKA, non-enzymatic glycation Narrative Course Patient has a liter IV fluids and IV insulin. Patient reassessed at 12:30 AM and was found to be diaphoretic. Repeat blood glucose 314. Routine hyperglycemia blood test ordered including beta hydroxybutyrate. Oncoming provider to follow up the results of the workup which has been added on with the plan for discharge home assuming they're normal. Diagnosis Primary Impression: Hyperglycemia Referrals: Primary Care Physician call for appointment Additional Instructions: You have a choice when it comes to health care, and we are glad that you chose [facility]. Hopefully, we have met your expectations on today's visit. You are welcome to return to [facility] at any time, as we are committed to meeting the health care needs of our community. Jim Joseph MD Jan 19, 2017 23:55
[2017-01-20] MEDS ORDERED: ACETAMINOPHEN 500 MG CPLT PO ONE
[2017-01-20] MEDS ORDERED: SODIUM CHLOR 0.9% 1000 ML INJ 1,000 ML IV ONE (00:30)
--- NOTE | 2017-01-20 00:56 | RADRPT ---
EXAM DATE/TIME: 01/20/2017 00:26 [facility] COMPARISON: CHEST SINGLE AP, August 17, 2014, 18:04. CHEST SINGLE AP, October 11, 2016, 8:22. INDICATIONS : Hyperglycemia. MEDICAL HISTORY : Diabetes mellitus type II. SURGICAL HISTORY : Cardiac cath. ENCOUNTER: Initial ACUITY: 1 day PAIN SCORE: 0/10 LOCATION: Bilateral chest FINDINGS: A single view of the chest demonstrates the lungs to be symmetrically aerated without evidence of mas s, infiltrate or effusion. Linear atelectasis or scarring at the left lung base. The cardiomediasti nal contours are unremarkable. Osseous structures are intact. CONCLUSION: No infiltrates seen. Left basilar scarring or atelectasis. Ta Lora MD on January 20, 2017 at 0:54 Board Certified Radiologist. This report was verified electronically.
[2017-01-20 01:28] LABS: ALT (GPT) 34 U/L (12-78); ANION GAP 7 MEQ/L (5-15); AST (GOT) 14 U/L (15-37); BICARBONATE 29.9 MEQ/L (21.0-32.0); BLOOD UREA NITROGEN 15 MG/DL (7-18); CHLORIDE 100 MEQ/L (98-107); GLOMERULAR FILTRATION RATE 76 ML/MIN (>89); MAGNESIUM 1.7 MG/DL (1.5-2.5); POTASSIUM 4.2 MEQ/L (3.5-5.1); SODIUM (NA) 137 MEQ/L (136-145)
[2017-01-20 01:32] VITALS: O2SAT 94
[2017-01-20 01:32] LABS: ALKALINE PHOSPHATASE 124 U/L (45-117); BETA-HYDROXYBUTYRATE 0.14 MMOL/L (0.00-0.39); TOTAL BILIRUBIN ADULT 0.3 MG/DL (0.2-1.0)
--- NOTE | 2017-01-20 01:49 | PD ---
Physical Exam Time Seen by Provider: 01:40 Data Data Last Documented VS Vital Signs Date Time Temp Pulse Resp B/P Pulse Ox O2 Delivery O2 Flow Rate FiO2 01/19/17 22:40 98.2 94 18 141/90 95 Room Air Orders Blood Glucose (01/19/17 23:09) Blood Glucose (01/20/17 00:09) Iv Access Insert/Monitor (01/19/17 23:09) Sodium Chlor 0.9% 1000 Ml Inj (Ns 1000 M (01/19/17 23:09) Insulin Human Regular Inj (Novolin R Inj (01/19/17 23:15) Acetaminophen (Tylenol) (01/20/17 00:00) Sodium Chlor 0.9% 1000 Ml Inj (Ns 1000 M (01/20/17 00:30) Electrocardiogram (01/20/17 00:29) Complete Blood Count With Diff (01/20/17 00:29) Comprehensive Metabolic Panel (01/20/17 00:29) Magnesium (Mg) (01/20/17 00:29) Beta Hydroxybutyrate (Acetone) (01/20/17 00:29) Chest, Single Ap (01/20/17 00:29) Ecg Monitoring (01/20/17 00:29) Iv Access Insert/Monitor (01/20/17 00:29) Oximetry (01/20/17 00:29) Troponin I (01/20/17 00:29) Labs Laboratory Tests Test 01/20/17 00:20 Sodium Level 137 MEQ/L Potassium Level 4.2 MEQ/L Chloride Level 100 MEQ/L Carbon Dioxide Level 29.9 MEQ/L Anion Gap 7 MEQ/L Blood Urea Nitrogen 15 MG/DL Creatinine 1.03 MG/DL Estimat Glomerular Filtration 76 ML/MIN Rate Random Glucose 335 MG/DL Calcium Level 8.7 MG/DL Magnesium Level 1.7 MG/DL Total Bilirubin 0.3 MG/DL Aspartate Amino Transf 14 U/L (AST/SGOT) Alanine Aminotransferase 34 U/L (ALT/SGPT) Alkaline Phosphatase 124 U/L Troponin I LESS THAN 0.02 NG/ML Total Protein 7.2 GM/DL Albumin 3.6 GM/DL B-Hydroxybutyrate 0.14 MMOL/L [facility] Medical Record Reviewed: Yes Supervised Visit with RADHA: No Narrative Course I assumed care of this patient pending lab work studies. Please see Dr. Jorgensen's note for complete history of present illness. In summary this is a 51-year-old male with history of type 2 diabetes, on metformin, who presented for evaluation of hyperglycemia. He felt that his blood sugar was high. He was previously given 4 units of insulin and 2 L of IV fluids. Upon my examination he feels significantly improved. His blood sugar is now 200. He has appointment with his primary care physician in 2 days to discuss his hyperglycemia and diabetes management. He is stable for discharge. Diagnosis Primary Impression: Hyperglycemia Referrals: Primary Care Physician call for appointment Additional Instruction: You have a choice when it comes to health care, and we are glad that you chose [facility]. Hopefully, we have met your expectations on today's visit. You are welcome to return to [facility] at any time, as we are committed to meeting the health care needs of our community. Med/Other Pt SpecificInfo: No Change to Meds Disposition: 01 DISCHARGE HOME Condition: Stable Miguel A Evans Jan 20, 2017 01:49
[2017-01-20 02:25] VITALS: BP 130/85; PULSE 74; RESP 16; O2SAT 94
[2017-01-20 02:31] VITALS: BP 130/85
--- NOTE | 2017-01-20 09:03 | EKG ---
Date Performed: 01/20/2017 Time Performed: 00:48:19 PTAGE: 51 years EKG: Sinus rhythm NONSPECIFIC T-WAVE ABNORMALITY BORDERLINE ECG PREVIOUS TRACING : 10/11/2016 08.10 Compared to prior tracing no significant change DOCTOR: Efra Mckeon Interpretating Date/Time 01/20/2017 08:57:30
== END 2017-01-20 02:33 | disposition home or self-care (01) ==
LOC: NEPD 22:33
DX: E11.65 Type 2 diabetes mellitus with hyperglycemia (principal); Z88.0 Allergy status to penicillin; Z86.73 Personal history of transient ischemic attack (TIA), and cerebral infarction without residual deficits; I10 Essential (primary) hypertension
CPT/HCPCS: 71010; 80053; 82010; 83735; 84484; 93005; 96361; 96374; 99285; J1815; J7030